=== PATIENT | female | born 1945 | race Caucasian/White ===

== ENCOUNTER 2016-09-03 07:44 | Day surgery (SDC) ==
--- NOTE | 2016-09-01 10:53 | EKG Report ---
Test Performed on : 09/01/2016 09:18:42 AM Test Reason : PAT Blood Pressure : / mmHG Vent. Rate : 063 BPM Atrial Rate : 063 BPM P-R Int : 168 ms QRS Dur : 074 ms QT Int : 404 ms P-R-T Axes : 031 008 049 degrees QTc Int : 413 ms Normal sinus rhythm. with sinus arrhythmia. Possible Anterior infarct , age undetermined Abnormal ECG No previous ECGs available Confirmed by Candelario Maradiaga MD ([id number]) on 09/03/2016 9:03:08 PM
[2016-09-03] MEDS ORDERED: KEFZOL 1 GM/D5W 0 ML ONE (08:39)
[2016-09-03] MEDS ORDERED: LR 1,000 ML ONE ×2 (08:39→09:21)
[2016-09-03] MEDS ORDERED: KEFZOL 2 GM/D5W 50 ML ONE (08:42)
[2016-09-03] MEDS ORDERED: MARCAINE 0.25% PF/EPI 1:200,000 ONE (09:21)
[2016-09-03] MEDS ORDERED: SODIUM CHLORIDE 0.9% ONE (09:21)
[2016-09-03] MEDS ORDERED: DIPRIVAN 1% ONE (12:04)
[2016-09-03] MEDS ORDERED: FENTANYL ONE (12:05)
[2016-09-03] MEDS ORDERED: PERCOCET-5 ONE (13:09)
[2016-09-03] MEDS ORDERED: PERCOCET-5 PO ONE (13:10)
[2016-09-03] MEDS ORDERED: ZOFRAN IV PRN (13:26)
[2016-09-03] MEDS ORDERED: NORCO-7.5 PO PRN (13:26)
[2016-09-03 14:04] VITALS: BP 153/52
--- NOTE | 2016-09-03 16:47 | OPERATIVE NOTE ---
PROCEDURE DATE: 09/03/2016 PREOPERATIVE DIAGNOSIS: Symptomatic gallbladder polyp. POSTOPERATIVE DIAGNOSIS: Symptomatic gallbladder polyp. PROCEDURE PERFORMED: Laparoscopic cholecystectomy with intraoperative cholangiogram. COMPLICATIONS: None. ESTIMATED BLOOD LOSS: 5 mL. SPECIMENS: Gallbladder. OPERATIVE INDICATION: This is a 71-year-old female, who has had colicky right upper quadrant pain for some time that is worsening. She had an ultrasound that showed a small gallbladder polyp. No other abnormal findings. OPERATIVE FINDINGS: There is a mildly inflamed, chronically appearing nondilated gallbladder. No obvious stones. INTERPRETATION OF INTRAOPERATIVE CHOLANGIOGRAM: There is a very small diminutive cystic duct. There was some contrast noted to flow through this cystic duct, however, it appeared to be distally occluded. Had a valve or just to a small nature. There was preferential reflux. As such, the common bile duct, common hepatic duct were unable to be completely visualized. Given the normal LFTs, further attempts were aborted, but there were 2 tries at completing a complete cholangiogram. OPERATIVE NOTE: Risks, benefits, alternatives discussed with the patient, she consented to the procedure. She was seen in the preoperative area and surgery to be performed was confirmed. She was taken to the operating room, placed supine position. General anesthesia was induced without complication. Preincisional antibiotics were administered. Abdomen was prepped with chlorhexidine solution and draped in the usual fashion. Time-out was performed between nursing, surgical, anesthesia staff. Periumbilical block was made. There is a lower midline incision. As such, we made a curvilinear infraumbilical incision, dissected down to the level of the fascia, elevated this and the abdomen was entered through the midline of the fascia in a controlled open fashion. A 12 mm Monalisa trocar was placed. The abdomen was insufflated to 15 mmHg. She has placed in reverse Trendelenburg position and abdomen was inspected. There was no other acute abnormalities noted. Three trocars were placed after infiltration of the peritoneum. They were 5 mm, one in the epigastrium, one off the costal margin, in the midclavicular line and one more laterally. The gallbladder was grasped with a locking grasper, and retracted cephalad. The infundibular gallbladder was identified and starting laterally and progressing medially, the peritoneum was stripped off, exposing the infundibulocystic junction. There was a very small cystic artery identified. This was divided with electrocautery exposing the critical view of safety and with liver visualized. The cystic duct was dissected out over an adequate segment. Single clip on the gallbladder side ductotomy was made and cholangiogram was performed with above findings. The duct was then triply clipped and divided. The gallbladder was removed off the gallbladder fossa in its entirety without rupture or spillage of stones. Hemostasis was confirmed as we went. Placed in an EndoCatch bag. We irrigated the abdomen until clear. Hemostasis was noted. There was no bile leakage. We removed the trocars under direct visualization. Deflated that and brought the gallbladder out through the umbilical incision. We closed the fascia with 0 Vicryl sutures. The skin was closed with 4-0 Monocryl. Dermabond was applied. All sponges and needle counts were correct x2. I talked to family.
== END 2016-09-03 14:45 | disposition home or self-care (01) ==
LOC: OPS 07:44
PROVIDERS: ATTEND Surgery
DX: K81.1 Chronic cholecystitis (principal); I10 Essential (primary) hypertension
CPT/HCPCS: 76000; 88304; 93005; 93010; C1751; J0690; J3010; J7120; Q9966